=== PATIENT | male | born 1980 | race Caucasian/White ===

== ENCOUNTER 2020-02-07 09:50 | Day surgery (SDC) | payer MEDICAID ==
[2020-01-31 16:00] LABS: BASOPHILS # (AUTO) 0.1 X10'3 (0-0.2); BASOPHILS % (AUTO) 0.6 % (0-1); EOSINOPHILS # (AUTO) 1.2 X10'3 (0-0.9); EOSINOPHILS % (AUTO) 13.1 % (0-6); LYMPHOCYTES # (AUTO) 4.4 X10'3 (1.1-4.8); LYMPHOCYTES % (AUTO) 48.7 % (21-51); MEAN CORPUSCULAR HGB CONC 34.8 g/dL (33.0-36.5); MEAN CORPUSCULAR VOLUME 89.1 FL (78-98); MEAN PLATELET VOLUME 7.4 FL (7.4-10.4); MONOCYTES # (AUTO) 0.6 X10'3 (0-0.9); MONOCYTES % (AUTO) 6.4 % (2-12); NEUTROPHILS # (AUTO) 2.8 X10'3 (1.8-7.7); NEUTROPHILS % (AUTO) 31.2 % (42-75); PRE OP HEMATOCRIT 43.6 % (42.0-52.0); PRE OP HEMOGLOBIN 15.2 g/dL (14.0-17.9); PRE OP PLATELET COUNT 265 X10'3 (140-440); RED CELL DISTRIBUTION WIDTH 12.4 % (11.5-14.5)
[2020-01-31 16:14] LABS: ALBUMIN 3.9 G/DL (3.4-5.0); ALBUMIN/GLOBULIN RATIO 1.2 (1.1-1.5); ALKALINE PHOSPHATASE 71 IU/L (46-116); BLOOD UREA NITROGEN 17 MG/DL (7-18); BUN/CREATININE RATIO 18.7 (5.4-32.0); CALCIUM 8.7 MG/DL (8.5-10.1); CHLORIDE 101 MMOL/L (99-107); CREATININE 0.91 MG/DL (0.60-1.10); PRE OP ALT 41 U/L (30-65); PRE OP ANION GAP 9 (8-16); PRE OP AST 33 U/L (10-37); PRE OP BILIRUB, TOTAL 0.4 MG/DL (0.0-1.0); PRE OP GLUCOSE 98 MG/DL (70-104); PRE OP SODIUM 139 MMOL/L (135-145); TOTAL CARBON DIOXIDE 29.5 MMOL/L (24-32); TOTAL PROTEIN 7.1 G/DL (6.4-8.2); eGFR > 90 ML/MIN
[~2020-02-07] VITALS: Ht 180.3 cm; Wt 122.0 kg
[~2020-02-07 09:50] MED LIST: ASPI-1265 PO; BUPIVAcaine/PF 2.5mg/ml (0.25%) 10ml vial ONE; BUPR1FIL3 PO; GABA300C PO; IBUP-1985 PO; LIDOcaine 0.5% (5mg/ml) 50ml vial ONE; MORP15TA PO; SIMV-42 PO; ceFAZolin inj. 3,000 MG in normal saline 100ml IV soln 100 ML IV ONE; famotidine 20mg tablet PO ONE; ringers solution, lacted 1,000 ML IV SCH
[2020-02-07 09:55] VITALS: BP 119/78
[2020-02-07] MEDS ORDERED: morphine 2 MG/ML inj. syringe IV PRN (10:15)
[2020-02-07] MEDS ORDERED: fentaNYL/PF 50MCG/1 ML 2ML syringe IV PRN ×2 (10:15)
[2020-02-07] MEDS ORDERED: ringers solution, lacted 1,000 ML IV SCH (10:15)
[2020-02-07] MEDS ORDERED: morphine 4 MG/ML inj SYRINge IV PRN (10:15)
[2020-02-07] MEDS ORDERED: hydrALAZINE 20mg/ml inj. IV PRN (10:15)
[2020-02-07] MEDS ORDERED: labetalol 20mg/4ml (5mg/ml) syringe IV PRN (10:15)
[2020-02-07] MEDS ORDERED: ondansetron/PF 4mg/2ml inj IV PRN (10:15)
[2020-02-07] MEDS ORDERED: BUPIVAcaine/PF 2.5mg/ml (0.25%) 10ml vial ONE (11:03)
[2020-02-07] MEDS ORDERED: sevoflurane 250ml liquid IH ONE (12:12)
[2020-02-07] MEDS ORDERED: fentaNYL/PF 50MCG/1 ML 2ML syringe ONE (12:18)
[2020-02-07] MEDS ORDERED: midazolam 2 mg/2 ml injection ONE (12:19)
[2020-02-07] MEDS ORDERED: LIDOcaine 2% (20mg/ml) 5ml vial ONE (12:53)
[2020-02-07] MEDS ORDERED: dexamethasone sod phosphate 4mg/ml inj. ONE (12:53)
[2020-02-07] MEDS ORDERED: ROPIVAcaine 0.5% (5mg/ml) 30ml vial ONE ×2 (12:53)
[2020-02-07] MEDS ORDERED: propofol inj 20 ML IV ONE (12:53)
[2020-02-07] MEDS ORDERED: ondansetron/PF 4mg/2ml inj ONE (12:53)
[2020-02-07 13:58] VITALS: BP 114/61
--- NOTE | 2020-02-07 13:58 | NUR ---
Received from OR via [facility], accompanied by Anesthesiologist Juan Daniel and report given by Anesthesiolgist. Pt sleepy not yet responsive to questions. All VS stable, will assess motor movement when awake. 22G left hand IVF LR. Ice and elevation to right wrist.
[2020-02-07 14:10] VITALS: BP 103/62
--- NOTE | 2020-02-07 14:10 | NUR ---
Pt awake and tolerated RA moves all extrems but not able to move fingers from block on surgical site.
[2020-02-07 14:20] VITALS: BP 110/70
[2020-02-07 14:30] VITALS: BP 123/80
--- NOTE | 2020-02-07 14:58 | NUR ---
Pt discharged by wheelchair to vehicle after IV dc'd and all belongings returned to patient. He states he has zero pain still and numb hand. Dressing remains CDI. He and girlfriend received all DC instructions at vehicle and verbalized understanding. Pt has meds at home and knows to follow up.
== END 2020-02-07 14:58 | disposition home or self-care (01) ==
LOC: PAS 09:50
PROVIDERS: ATTEND Orthopaedic Surgery Hand Surgery
DX: M19.031 Primary osteoarthritis, right wrist (principal); G89.18 Other acute postprocedural pain; F17.210 Nicotine dependence, cigarettes, uncomplicated; F11.20 Opioid dependence, uncomplicated; F15.90 Other stimulant use, unspecified, uncomplicated; E66.9 Obesity, unspecified; Z68.37 Body mass index [BMI] 37.0-37.9, adult; Z79.899 Other long term (current) drug therapy; Z20.828 Contact with and (suspected) exposure to other viral communicable diseases; Z82.49 Family history of ischemic heart disease and other diseases of the circulatory system
CPT/HCPCS: 25800; 36415; 64415; 64417; 76942; 80053; 82948; 85025; 87635; C1713; J0690; J1100; J2001; J2250; J2405; J2704; J3010; J3490; A4215; A4618; J2795; J7120

== ENCOUNTER 2020-02-08 14:28 | Emergency (ER) | payer MEDICAID ==
[~2020-02-08] VITALS: Ht 180.3 cm; Wt 118.2 kg
[~2020-02-08 14:28] MED LIST changes: -BUPIVAcaine/PF 2.5mg/ml (0.25%) 10ml vial ONE; -LIDOcaine 0.5% (5mg/ml) 50ml vial ONE; -ceFAZolin inj. 3,000 MG in normal saline 100ml IV soln 100 ML IV ONE; -famotidine 20mg tablet PO ONE; -ringers solution, lacted 1,000 ML IV SCH
[2020-02-08 14:37] VITALS: BP 156/78
[2020-02-08 15:13] LABS: BASOPHILS # (AUTO) 0.1 X10'3 (0-0.2); BASOPHILS % (AUTO) 0.4 % (0-1); EOSINOPHILS # (AUTO) 0.2 X10'3 (0-0.9); EOSINOPHILS % (AUTO) 1.8 % (0-6); HEMATOCRIT 43.6 % (42.0-52.0); LYMPHOCYTES # (AUTO) 5.6 X10'3 (1.1-4.8); LYMPHOCYTES % (AUTO) 42.9 % (21-51); MEAN CORPUSCULAR HEMOGLOBIN 30.7 PG (27.0-31.0); MEAN CORPUSCULAR HGB CONC 34.5 g/dL (33.0-36.5); MEAN PLATELET VOLUME 7.1 FL (7.4-10.4); MONOCYTES # (AUTO) 1.1 X10'3 (0-0.9); NEUTROPHILS # (AUTO) 6.2 X10'3 (1.8-7.7); NEUTROPHILS % (AUTO) 46.9 % (42-75); PLATELET COUNT 328 X10'3 (140-440); RED CELL DISTRIBUTION WIDTH 12.6 % (11.5-14.5); WHITE BLOOD COUNT 13.1 X10'3 (4.5-11.0)
[2020-02-08 15:22] LABS: ANION GAP 9 (8-16); BLOOD UREA NITROGEN 18 MG/DL (7-18); BUN/CREATININE RATIO 18.8 (5.4-32.0); CALCIUM 8.5 MG/DL (8.5-10.1); CHLORIDE 103 MMOL/L (99-107); CREATININE 0.96 MG/DL (0.60-1.10); GLUCOSE 101 MG/DL (70-104); POTASSIUM 4.1 MMOL/L (3.5-5.1); SODIUM 139 MMOL/L (135-145); TOTAL CARBON DIOXIDE 26.9 MMOL/L (24-32); eGFR 88 ML/MIN
== END 2020-02-08 17:32 | disposition home or self-care (01) ==
LOC: ER 14:29
DX: T81.89XA Other complications of procedures, not elsewhere classified, initial encounter (principal); G89.18 Other acute postprocedural pain; M25.531 Pain in right wrist; Z79.899 Other long term (current) drug therapy; X58.XXXA Exposure to other specified factors, initial encounter; Y92.89 Other specified places as the place of occurrence of the external cause; Y93.89 Activity, other specified; Y99.8 Other external cause status
CPT/HCPCS: 29125; 36415; 73110; 80048; 85025; 99284

== ENCOUNTER 2020-02-22 10:57 | Emergency (ER) | payer MEDICAID ==
[~2020-02-22] VITALS: Ht 180.3 cm; Wt 118.2 kg
--- NOTE | 2020-02-22 11:45 | NUR ---
pt extremely diaphoretic and c/o abdo pain 10/06. last suboxone today. denies heroin, meth or etoh use.
[2020-02-22 12:01] LABS: BASOPHILS # (AUTO) 0.1 X10'3 (0-0.2); BASOPHILS % (AUTO) 0.6 % (0-1); EOSINOPHILS # (AUTO) 1.1 X10'3 (0-0.9); EOSINOPHILS % (AUTO) 10.4 % (0-6); HEMATOCRIT 46.6 % (42.0-52.0); HEMOGLOBIN 16.2 g/dl (14.0-17.9); LYMPHOCYTES % (AUTO) 36.8 % (21-51); MEAN CORPUSCULAR HEMOGLOBIN 30.8 PG (27.0-31.0); MEAN CORPUSCULAR HGB CONC 34.7 g/dL (33.0-36.5); MEAN CORPUSCULAR VOLUME 88.6 FL (78-98); MEAN PLATELET VOLUME 7.2 FL (7.4-10.4); MONOCYTES # (AUTO) 0.6 X10'3 (0-0.9); NEUTROPHILS % (AUTO) 46.2 % (42-75); PLATELET COUNT 296 X10'3 (140-440); RED BLOOD COUNT 5.26 X10'6 (4.70-6.10); RED CELL DISTRIBUTION WIDTH 13.2 % (11.5-14.5); WHITE BLOOD COUNT 10.8 X10'3 (4.5-11.0)
[2020-02-22] MEDS ORDERED: NA P230E PR (12:07)
[2020-02-22] MEDS ORDERED: MAGN296S68 PO (12:07)
[2020-02-22 12:18] LABS: ALANINE AMINOTRANSFERASE 48 U/L (12-78); ALBUMIN 3.8 G/DL (3.4-5.0); ALBUMIN/GLOBULIN RATIO 1.1 (1.1-1.5); ALKALINE PHOSPHATASE 80 IU/L (46-116); ANION GAP 10 (8-16); ASPARTATE AMINO TRANSFERASE 36 U/L (10-37); BILIRUBIN,TOTAL 0.5 MG/DL (0.1-1.0); BLOOD UREA NITROGEN 14 MG/DL (7-18); BUN/CREATININE RATIO 14.7 (5.4-32.0); CALCIUM 8.8 MG/DL (8.5-10.1); CHLORIDE 106 MMOL/L (99-107); CREATININE 0.95 MG/DL (0.60-1.10); GLUCOSE 113 MG/DL (70-104); LIPASE 277 U/L (73-393); SODIUM 139 MMOL/L (135-145); TOTAL CARBON DIOXIDE 23.3 MMOL/L (24-32); TOTAL PROTEIN 7.4 G/DL (6.4-8.2); eGFR 89 ML/MIN
[2020-02-22 12:38] VITALS: BP 116/81
== END 2020-02-22 12:30 | disposition home or self-care (01) ==
LOC: ER 10:58
DX: K56.41 Fecal impaction (principal); R10.84 Generalized abdominal pain; R42 Dizziness and giddiness; Z98.890 Other specified postprocedural states; Z79.82 Long term (current) use of aspirin; Z79.899 Other long term (current) drug therapy
CPT/HCPCS: 36415; 80053; 83690; 85025; 99284

== ENCOUNTER 2020-03-09 13:50 | Emergency (ER) | payer MEDICAID ==
[~2020-03-09] VITALS: Ht 180.3 cm; Wt 113.4 kg
[~2020-03-09 13:50] MED LIST changes: +MAGN296S68 PO; +NA P230E PR
[2020-03-09 14:04] VITALS: BP 135/83
[2020-03-09] MEDS ORDERED: BUPR1FIL3 SL (14:51)
== END 2020-03-09 15:17 | disposition home or self-care (01) ==
LOC: ER 13:51
DX: F15.10 Other stimulant abuse, uncomplicated (principal); F17.200 Nicotine dependence, unspecified, uncomplicated; F11.90 Opioid use, unspecified, uncomplicated; G56.00 Carpal tunnel syndrome, unspecified upper limb; Z98.890 Other specified postprocedural states; Z79.82 Long term (current) use of aspirin; Z79.899 Other long term (current) drug therapy
CPT/HCPCS: 99283

== ENCOUNTER 2020-03-13 09:53 | Emergency (ER) | payer MEDICAID ==
[~2020-03-13] VITALS: Ht 180.3 cm; Wt 112.2 kg
[~2020-03-13 09:53] MED LIST changes: +BUPR1FIL3 SL
[2020-03-13 10:00] VITALS: BP 128/82
--- NOTE | 2020-03-13 10:20 | NUR ---
PT LAST USED THIS MORNING AT 7AM HEROIN AND METH. PT REQUESTING TO GO TO [facility].
--- NOTE | 2020-03-13 10:22 | NUR ---
PT REQUESTING TO HAVE HIS CAST REMOVED FROM RIGHT ARM. PLACED BY [facility]
== END 2020-03-13 10:55 | disposition home or self-care (01) ==
LOC: ER 09:54
DX: F15.10 Other stimulant abuse, uncomplicated (principal); F19.10 Other psychoactive substance abuse, uncomplicated; Z98.890 Other specified postprocedural states; Z79.82 Long term (current) use of aspirin; Z79.899 Other long term (current) drug therapy
CPT/HCPCS: 99281

== ENCOUNTER 2023-03-12 20:18 | Inpatient (IN) | payer MEDICAID ==
[~2023-03-12] VITALS: Ht 180.3 cm; Wt 88.0 kg
[~2023-03-12 20:18] MED LIST changes: -BUPR1FIL3 SL; +piperacillin/tazo 4.5gm/100ml 100 ML IV ONE
[2023-03-12] MEDS ORDERED: normal saline 1000ML IV soln IVB ONE ×2 (20:45→21:50)
[2023-03-12] MEDS ORDERED: morphine 4 MG/ML inj SYRINge IV PRN (20:45)
[2023-03-12] MEDS ORDERED: ondansetron/PF 4mg/2ml inj IV ONE (20:45)
[2023-03-12 21:20] LABS: BASOPHILS # (AUTO) 0.1 X10'3 (0-0.2); BASOPHILS % (AUTO) 0.5 % (0-1); EOSINOPHILS % (AUTO) 0.2 % (0-6); HEMATOCRIT 37.7 % (42.0-52.0); HEMOGLOBIN 12.2 g/dl (14.0-17.9); LYMPHOCYTES # (AUTO) 2.3 X10'3 (1.1-4.8); LYMPHOCYTES % (AUTO) 15.5 % (21-51); MEAN CORPUSCULAR HEMOGLOBIN 27.6 PG (27.0-31.0); MEAN CORPUSCULAR HGB CONC 32.5 g/dL (33.0-36.5); MEAN PLATELET VOLUME 6.5 FL (7.4-10.4); MONOCYTES # (AUTO) 1.6 X10'3 (0-0.9); MONOCYTES % (AUTO) 10.7 % (2-12); NEUTROPHILS # (AUTO) 11.1 X10'3 (1.8-7.7); NEUTROPHILS % (AUTO) 73.1 % (42-75); PLATELET COUNT 550 X10'3 (140-440); RED BLOOD COUNT 4.44 X10'6 (4.70-6.10); RED CELL DISTRIBUTION WIDTH 13.5 % (11.5-14.5); WHITE BLOOD COUNT 15.1 X10'3 (4.5-11.0)
[2023-03-12] MEDS ORDERED: amox tr/potassium clavulanate 875/125mg TAB PO ONE (21:35)
[2023-03-12 21:37] LABS: ALANINE AMINOTRANSFERASE 14 U/L (12-78); ALBUMIN 2.5 G/DL (3.4-5.0); ALBUMIN/GLOBULIN RATIO 0.5 (1.1-1.5); ALKALINE PHOSPHATASE 80 IU/L (46-116); ANION GAP 7 (8-16); ASPARTATE AMINO TRANSFERASE 19 U/L (10-37); BILIRUBIN,TOTAL 0.6 MG/DL (0.1-1.0); BLOOD UREA NITROGEN 18 MG/DL (7-18); BUN/CREATININE RATIO 15.3 (10.0-20.0); CALCIUM 8.8 MG/DL (8.5-10.1); CHLORIDE 96 MMOL/L (99-107); CREATININE 1.18 MG/DL (0.60-1.10); GLUCOSE 96 MG/DL (70-104); POTASSIUM 4.2 MMOL/L (3.5-5.1); SODIUM 133 MMOL/L (135-145); TOTAL CARBON DIOXIDE 30.5 MMOL/L (24-32); TOTAL PROTEIN 7.4 G/DL (6.4-8.2); eCRCL 89 ML/MIN; eGFR 68 ML/MIN
[2023-03-12 21:40] LABS: LIPASE 8 U/L (16-77)
[2023-03-12] MEDS ORDERED: vancomycin/NS 1 GM ADD-VANTAGE 250 ML IV ONE ×2 (21:50→22:10)
[2023-03-12] MEDS ORDERED: methylPREDNISolone sod succ 125mg/2ml vial IV ONE (21:50)
[2023-03-12] MEDS ORDERED: albuterol 2.5 MG/3 ML nebule NEB ONE (21:50)
[2023-03-12 22:53] VITALS: PULSE 107; RESP 20; O2SAT 97
[2023-03-12] MEDS ORDERED: diphenhydrAMINE 25mg capsule PO PRN (22:55)
[2023-03-12] MEDS ORDERED: HYDROcodone/acetaminophen 5mg/325mg tablet PO PRN (22:55)
[2023-03-12] MEDS ORDERED: ondansetron 4mg rapidly disintigrating tab PO PRN (22:55)
[2023-03-12] MEDS ORDERED: morphine 2 MG/ML inj. syringe IV PRN ×2 (22:55)
[2023-03-12] MEDS ORDERED: mag hydrox/Alum hydrox/simeth 30ml oral suspension PO PRN (22:55)
[2023-03-12] MEDS: normal saline 1000ml 1,000 ML IV SCH (22:55)
[2023-03-12] MEDS ORDERED: metoclopramide 5 mg/ml inj IV PRN (22:55)
[2023-03-12] MEDS ORDERED: acetaminophen 325mg tablet PO PRN ×2 (22:55)
[2023-03-12] MEDS ORDERED: ondansetron/PF 4mg/2ml inj IV PRN (22:55)
[2023-03-12] MEDS ORDERED: acetaminophen 650mg rectal suppository RC PRN (22:55)
[2023-03-12] MEDS ORDERED: bisacodyl 10mg suppository rectal RC PRN (22:55)
[2023-03-12] MEDS ORDERED: magnesium hydroxide 30ml (MOM) UD suspension PO PRN (22:55)
[2023-03-12] MEDS ORDERED: diphenhydrAMINE 50 mg/ml inj IV PRN (22:55)
[2023-03-12 23:03] VITALS: PULSE 110; RESP 20; O2SAT 99
[2023-03-12] MEDS ORDERED: magnesium citrate 296ml oral solution PO ONE (23:05)
[2023-03-12] MEDS ORDERED: lactulose 20gm/30ml cup PO ONE (23:05)
[2023-03-12 23:49] LABS: HEMOGLOBIN A1C 5.3 % (4.5-6.2)
[2023-03-12 23:54] LABS: APTT 38 SECONDS (22-32); D-DIMER 0.76 MG/L FEU (0-0.50); INR 1.2 INR; PROTHROMBIN TIME 12.6 SECONDS (9.0-12.0)
[2023-03-12 23:56] LABS: URINE AMPHETAMINE SCREEN POSITIVE (Neg); URINE BARBITUATE SCREEN NEGATIVE (Neg); URINE BENZODIAZEPINES SCREEN NEGATIVE (Neg); URINE CANNABINOID SCREEN POSITIVE (Neg); URINE COCAINE SCREEN NEGATIVE (Neg); URINE METHADONE SCREEN NEGATIVE (Neg); URINE OPIATE SCREEN POSITIVE (Neg); URINE PHENCYCLIDINE SCREEN NEGATIVE (Neg)
[2023-03-13 00:07] LABS: CREATINE KINASE 122 U/L (39-308); MAGNESIUM 1.6 MG/DL (1.5-2.4); PHOSPHORUS 3.6 MG/DL (2.3-4.5); PRO BRAIN NATRIURETIC PEPTIDE 54 PG/ML (0-125); THYROID STIMULATING HORMONE 1.28 ulU/ml (0.34-4.50)
[2023-03-13 00:22] LABS: BILIRUBIN,URINE MODERATE (Neg); CLARITY,URINE SLIGHTLY CLOUDY (Clear); COLOR,URINE AMBER (Yellow); GLUCOSE, URINE 100 mg/dl (Neg); KETONES,URINE TRACE mg/dl (Neg); LEUKOCYTE ESTERASE ,URINE NEGATIVE (Neg); NITRITES, URINE NEGATIVE (Neg); OCCULT BLOOD,URINE NEGATIVE (Neg); PROTEIN,URINE TRACE mg/dl (Neg)
[2023-03-13 00:27] LABS: UA COLLECTION TYPE CLN CATCH MIDSTREAM
[2023-03-13 00:31] LABS: MUCUS STRANDS MANY /LPF (Neg)
[2023-03-13 00:32] LABS: BACTERIA,URINE FEW /HPF (Neg)
[2023-03-13 00:33] LABS: SQUAMOUS EPITHELIAL CELL,UR FEW /LPF (FEW)
[2023-03-13 00:34] LABS: CAL OXALATE CRYSTALS FEW /HPF (NEGATIVE); RBC,URINE NONE SEEN /HPF (0-2); WBC,URINE 0-4 /HPF (0-4)
[2023-03-13] MEDS: heparin, porcine 5000 units/ml vial SQ SCH ×3 (01:03→15:40)
[2023-03-13 02:37] LABS: BASOPHILS % (AUTO) 0.2 % (0-1); EOSINOPHILS % (AUTO) 0.1 % (0-6); HEMATOCRIT 34.8 % (42.0-52.0); HEMOGLOBIN 11.8 g/dl (14.0-17.9); LYMPHOCYTES # (AUTO) 0.9 X10'3 (1.1-4.8); LYMPHOCYTES % (AUTO) 8.4 % (21-51); MEAN CORPUSCULAR HEMOGLOBIN 28.6 PG (27.0-31.0); MEAN CORPUSCULAR HGB CONC 33.8 g/dL (33.0-36.5); MEAN CORPUSCULAR VOLUME 84.5 FL (78-98); MEAN PLATELET VOLUME 6.3 FL (7.4-10.4); MONOCYTES # (AUTO) 0.3 X10'3 (0-0.9); MONOCYTES % (AUTO) 3.1 % (2-12); NEUTROPHILS # (AUTO) 9.8 X10'3 (1.8-7.7); NEUTROPHILS % (AUTO) 88.2 % (42-75); PLATELET COUNT 475 X10'3 (140-440); RED BLOOD COUNT 4.12 X10'6 (4.70-6.10); RED CELL DISTRIBUTION WIDTH 13.9 % (11.5-14.5); WHITE BLOOD COUNT 11.1 X10'3 (4.5-11.0)
[2023-03-13 02:41] LABS: ALANINE AMINOTRANSFERASE 17 U/L (12-78); ALBUMIN 2.4 G/DL (3.4-5.0); ALBUMIN/GLOBULIN RATIO 0.5 (1.1-1.5); ALKALINE PHOSPHATASE 77 IU/L (46-116); ANION GAP 7 (8-16); ASPARTATE AMINO TRANSFERASE 14 U/L (10-37); BILIRUBIN,TOTAL 0.9 MG/DL (0.1-1.0); BLOOD UREA NITROGEN 12 MG/DL (7-18); BUN/CREATININE RATIO 13.5 (10.0-20.0); CALCIUM 8.6 MG/DL (8.5-10.1); CHLORIDE 99 MMOL/L (99-107); CREATININE 0.89 MG/DL (0.60-1.10); GLUCOSE 134 MG/DL (70-104); POTASSIUM 4.4 MMOL/L (3.5-5.1); SODIUM 133 MMOL/L (135-145); TOTAL CARBON DIOXIDE 26.7 MMOL/L (24-32); TOTAL PROTEIN 7.1 G/DL (6.4-8.2); eCRCL 118 ML/MIN; eGFR > 90 ML/MIN
[2023-03-13 02:44] LABS: CHOL/HDL RATIO 6.4 (0.00-4.99); CHOLESTEROL 197 MG/DL (0-200); HDL CHOLESTEROL 31 MG/DL (35-60); LDL CHOLESTEROL 139 MG/DL (50-100); TRIGLYCERIDES 59 MG/DL (20-135)
[2023-03-13 03:49] VITALS: BP 115/67; PULSE 88; RESP 20; TEMP 98.6; O2SAT 93
[2023-03-13 06:00] VITALS: BP 115/68; PULSE 87; RESP 18; TEMP 98.6; O2SAT 93
[2023-03-13] MEDS: CefTRIAXone/D5W-Rocephin 1gm 50 ML IV SCH (07:01)
[2023-03-13] MEDS: nicotine 21mg patch - 24 hr TD SCH ×2 (07:01→12:15)
[2023-03-13] MEDS: docusate sod 100mg capsule PO SCH ×2 (07:03→20:00)
[2023-03-13] MEDS: azithromycin/NS 500mg/250ml 250 ML IV SCH (08:19)
[2023-03-13] MEDS: normal saline 1000ml 1,000 ML IV SCH ×3 (08:25→22:46)
[2023-03-13] MEDS: HYDROcodone/acetaminophen 10/325mg tab PO PRN ×4 (08:32→20:40)
[2023-03-13 10:00] VITALS: BP 115/77; PULSE 87; RESP 16; TEMP 96.2; O2SAT 95
[2023-03-13] MEDS ORDERED: iohexol 300mg/ml 100ml inj. ONE (15:18)
[2023-03-13 17:52] VITALS: PULSE 68; RESP 17; O2SAT 95
[2023-03-13 19:00] VITALS: BP 134/82; PULSE 79; RESP 16; TEMP 97.8; O2SAT 95
[2023-03-13] MEDS: temazepam 15mg capsule PO PRN (20:44)
[2023-03-13] MEDS ORDERED: polyethylene glycol 3350 17gm powd pack PO SCH (21:00)
[2023-03-13 22:00] VITALS: BP 115/58; PULSE 80; RESP 18; TEMP 97.3; O2SAT 94
[2023-03-13] MEDS: guaiFENesin ER 600mg tablet PO SCH (22:46)
[2023-03-14] VITALS (7 sets, daily range): BP systolic 117–148; BP diastolic 60–81; PULSE 73–88; RESP 14–19; TEMP 97.7–98.5; O2SAT 93–98
[2023-03-14] MEDS: HYDROcodone/acetaminophen 10/325mg tab PO PRN ×5 (01:46→23:34)
[2023-03-14 06:29] LABS: BASOPHILS % (AUTO) 0.3 % (0-1); EOSINOPHILS % (AUTO) 0.2 % (0-6); HEMATOCRIT 35.4 % (42.0-52.0); HEMOGLOBIN 11.9 g/dl (14.0-17.9); LYMPHOCYTES # (AUTO) 2.3 X10'3 (1.1-4.8); LYMPHOCYTES % (AUTO) 27.9 % (21-51); MEAN CORPUSCULAR HEMOGLOBIN 28.4 PG (27.0-31.0); MEAN CORPUSCULAR HGB CONC 33.6 g/dL (33.0-36.5); MEAN CORPUSCULAR VOLUME 84.6 FL (78-98); MEAN PLATELET VOLUME 6.6 FL (7.4-10.4); MONOCYTES # (AUTO) 0.6 X10'3 (0-0.9); MONOCYTES % (AUTO) 7.9 % (2-12); NEUTROPHILS # (AUTO) 5.2 X10'3 (1.8-7.7); NEUTROPHILS % (AUTO) 63.7 % (42-75); PLATELET COUNT 487 X10'3 (140-440); RED BLOOD COUNT 4.19 X10'6 (4.70-6.10); RED CELL DISTRIBUTION WIDTH 13.9 % (11.5-14.5); WHITE BLOOD COUNT 8.2 X10'3 (4.5-11.0)
[2023-03-14 06:44] LABS: ALANINE AMINOTRANSFERASE 12 U/L (12-78); ALBUMIN 2.1 G/DL (3.4-5.0); ALBUMIN/GLOBULIN RATIO 0.5 (1.1-1.5); ALKALINE PHOSPHATASE 67 IU/L (46-116); ANION GAP 6 (8-16); ASPARTATE AMINO TRANSFERASE 16 U/L (10-37); BILIRUBIN,TOTAL 0.4 MG/DL (0.1-1.0); BLOOD UREA NITROGEN 11 MG/DL (7-18); BUN/CREATININE RATIO 15.9 (10.0-20.0); CALCIUM 8.6 MG/DL (8.5-10.1); CHLORIDE 104 MMOL/L (99-107); CREATININE 0.69 MG/DL (0.60-1.10); GLUCOSE 96 MG/DL (70-104); POTASSIUM 3.9 MMOL/L (3.5-5.1); SODIUM 138 MMOL/L (135-145); TOTAL CARBON DIOXIDE 28.4 MMOL/L (24-32); TOTAL PROTEIN 6.7 G/DL (6.4-8.2); eCRCL 152 ML/MIN; eGFR > 90 ML/MIN
[2023-03-14] MEDS: CefTRIAXone/D5W-Rocephin 1gm 50 ML IV SCH (07:56)
[2023-03-14] MEDS: nicotine 21mg patch - 24 hr TD SCH (08:00)
[2023-03-14] MEDS: docusate sod 100mg capsule PO SCH (08:33)
[2023-03-14] MEDS: guaiFENesin ER 600mg tablet PO SCH ×2 (08:33→20:00)
[2023-03-14] MEDS: heparin, porcine 5000 units/ml vial SQ SCH ×4 (08:34→23:35)
[2023-03-14] MEDS ORDERED: LORazepam 1 MG tablet PO ONE (09:00)
[2023-03-14] MEDS: azithromycin/NS 500mg/250ml 250 ML IV SCH (09:14)
[2023-03-14] MEDS: normal saline 1000ml 1,000 ML IV SCH (12:48)
[2023-03-14] MEDS ORDERED: HYDROcodone/acetaminophen 5mg/325mg tablet PO PRN (16:50)
[2023-03-14] MEDS ORDERED: polyethylene glycol 3350 17gm powd pack PO PRN (16:50)
[2023-03-14] MEDS ORDERED: LORazepam 2 mg/ml vial IV PRN (16:50)
[2023-03-14] MEDS: LORazepam 0.5 MG tablet PO PRN (18:22)
[2023-03-14] MEDS ORDERED: LORazepam 1 MG tablet PO PRN (19:20)
[2023-03-15] MEDS: LORazepam 0.5 MG tablet PO PRN ×4 (01:07→22:36)
[2023-03-15 01:28] LABS: BASOPHILS % (AUTO) 0.3 % (0-1); EOSINOPHILS % (AUTO) 0.2 % (0-6); HEMATOCRIT 37.2 % (42.0-52.0); HEMOGLOBIN 12.6 g/dl (14.0-17.9); LYMPHOCYTES # (AUTO) 2.1 X10'3 (1.1-4.8); LYMPHOCYTES % (AUTO) 20.8 % (21-51); MEAN CORPUSCULAR HEMOGLOBIN 28.5 PG (27.0-31.0); MEAN CORPUSCULAR HGB CONC 33.8 g/dL (33.0-36.5); MEAN CORPUSCULAR VOLUME 84.1 FL (78-98); MEAN PLATELET VOLUME 6.6 FL (7.4-10.4); MONOCYTES # (AUTO) 0.7 X10'3 (0-0.9); MONOCYTES % (AUTO) 6.8 % (2-12); NEUTROPHILS # (AUTO) 7.2 X10'3 (1.8-7.7); NEUTROPHILS % (AUTO) 71.9 % (42-75); PLATELET COUNT 548 X10'3 (140-440); RED BLOOD COUNT 4.42 X10'6 (4.70-6.10); RED CELL DISTRIBUTION WIDTH 13.4 % (11.5-14.5)
[2023-03-15 01:43] LABS: ALANINE AMINOTRANSFERASE 16 U/L (12-78); ALBUMIN 2.2 G/DL (3.4-5.0); ALBUMIN/GLOBULIN RATIO 0.5 (1.1-1.5); ALKALINE PHOSPHATASE 70 IU/L (46-116); ANION GAP 10 (8-16); ASPARTATE AMINO TRANSFERASE 14 U/L (10-37); BILIRUBIN,TOTAL 0.4 MG/DL (0.1-1.0); BLOOD UREA NITROGEN 9 MG/DL (7-18); BUN/CREATININE RATIO 12.7 (10.0-20.0); CALCIUM 8.6 MG/DL (8.5-10.1); CHLORIDE 103 MMOL/L (99-107); CREATININE 0.71 MG/DL (0.60-1.10); GLUCOSE 96 MG/DL (70-104); POTASSIUM 3.7 MMOL/L (3.5-5.1); SODIUM 139 MMOL/L (135-145); TOTAL CARBON DIOXIDE 26.4 MMOL/L (24-32); eCRCL 147 ML/MIN; eGFR > 90 ML/MIN
[2023-03-15] MEDS: normal saline 1000ml 1,000 ML IV SCH ×2 (04:21→21:38)
[2023-03-15] MEDS: HYDROcodone/acetaminophen 10/325mg tab PO PRN ×2 (05:34→11:30)
[2023-03-15 06:00] VITALS: BP_SYST 133; BP_SYST 145; BP_DIAS 71; BP_DIAS 85; PULSE 64; PULSE 79; RESP 12; RESP 18; TEMP 98.2; TEMP 98.3; O2SAT 96; O2SAT 97
[2023-03-15] MEDS: heparin, porcine 5000 units/ml vial SQ SCH ×2 (08:00→15:41)
[2023-03-15] MEDS: nicotine 21mg patch - 24 hr TD SCH (08:00)
[2023-03-15] MEDS: CefTRIAXone/D5W-Rocephin 1gm 50 ML IV SCH (08:08)
[2023-03-15] MEDS: guaiFENesin ER 600mg tablet PO SCH ×2 (08:08→21:35)
[2023-03-15] MEDS: azithromycin/NS 500mg/250ml 250 ML IV SCH (08:08)
[2023-03-15 18:00] VITALS: BP 139/76; PULSE 66; RESP 10; TEMP 97.8; O2SAT 95
[2023-03-15] MEDS: temazepam 15mg capsule PO PRN (21:35)
[2023-03-15 22:00] VITALS: BP 134/71; PULSE 77; RESP 14; TEMP 97.9; O2SAT 95
[2023-03-16] MEDS: LORazepam 0.5 MG tablet PO PRN ×2 (04:46→12:19)
[2023-03-16 06:00] VITALS: BP 121/70; PULSE 71; RESP 17; TEMP 97.5; O2SAT 96
[2023-03-16 07:00] VITALS: RESP 16; O2SAT 96
[2023-03-16] MEDS: nicotine 21mg patch - 24 hr TD SCH (08:00)
[2023-03-16] MEDS: heparin, porcine 5000 units/ml vial SQ SCH ×2 (08:00)
[2023-03-16] MEDS ORDERED: azithromycin 250mg tablet PO SCH (08:00)
[2023-03-16] MEDS: CefTRIAXone/D5W-Rocephin 1gm 50 ML IV SCH (08:21)
[2023-03-16] MEDS: guaiFENesin ER 600mg tablet PO SCH (08:40)
[2023-03-16 10:00] VITALS: BP 140/86; PULSE 73; RESP 16; TEMP 97; O2SAT 96
[2023-03-16] MEDS ORDERED: AMOX-580 PO (12:40)
[2023-03-16] MEDS ORDERED: BUPR1FIL3 PO (12:40)
[2023-03-16] MEDS ORDERED: LORA-269 PO ×2 (12:50→14:28)
== END 2023-03-16 16:45 | disposition home or self-care (01) | DRG 720 ==
LOC: ER 20:19 → ED HOLD 23:05 → EDBEDREQ 03-13 03:13 → ORTHO 4S 03-13 03:32
PROVIDERS: ADMIT Family Medicine; ATTEND Internal Medicine
PROC: BW241ZZ Computerized Tomography (CT Scan) of Chest and Abdomen using Low Osmolar Contrast (ICD-10-PCS; principal; 2023-03-13)
DX: A41.9 Sepsis, unspecified organism (principal); J96.01 Acute respiratory failure with hypoxia; I31.39 Other pericardial effusion (noninflammatory); N17.9 Acute kidney failure, unspecified; J18.9 Pneumonia, unspecified organism; E87.1 Hypo-osmolality and hyponatremia; J44.0 Chronic obstructive pulmonary disease with (acute) lower respiratory infection; I48.91 Unspecified atrial fibrillation; Z20.822 Contact with and (suspected) exposure to COVID-19; G89.4 Chronic pain syndrome; D64.9 Anemia, unspecified; J44.1 Chronic obstructive pulmonary disease with (acute) exacerbation; F11.13 Opioid abuse with withdrawal; N18.9 Chronic kidney disease, unspecified; F19.10 Other psychoactive substance abuse, uncomplicated; E78.5 Hyperlipidemia, unspecified; D75.839 Thrombocytosis, unspecified; Z59.00 Homelessness unspecified; Z79.82 Long term (current) use of aspirin; Z79.899 Other long term (current) drug therapy
CPT/HCPCS: 36415; 71045; 71260; 74176; 80053; 80061; 80305; 81001; 81003; 82550; 83036; 83605; 83690; 83735; 83880; 84100; 84145; 84443; 84484; 85025; 85379; 85610; 85651; 85730; 87040; 87081; 87502; 87503; 87811; 93005; 94640; 94664; 94760; 99285; A4615; A6258; G0378; J0456; J0696; J1644; J2270; J2405; J2543; J2930; J3370; J3490; J7030; Q9967

== ENCOUNTER 2023-03-23 14:09 | Emergency (ER) | payer MEDICAID ==
[~2023-03-23] VITALS: Ht 180.3 cm; Wt 89.3 kg
[~2023-03-23 14:09] MED LIST changes: -BUPR1FIL3 PO; -IBUP-1985 PO; +LORA-269 PO; -MORP15TA PO; -piperacillin/tazo 4.5gm/100ml 100 ML IV ONE
[2023-03-23 14:23] VITALS: BP 115/66; PULSE 98; RESP 18; TEMP 98.1; O2SAT 99
== END 2023-03-23 14:45 | disposition home or self-care (01) ==
LOC: ER 14:10
DX: F11.10 Opioid abuse, uncomplicated (principal); F15.10 Other stimulant abuse, uncomplicated; F14.10 Cocaine abuse, uncomplicated; Z79.899 Other long term (current) drug therapy
CPT/HCPCS: 99281

== ENCOUNTER 2023-09-14 01:11 | Emergency (ER) | payer MEDICAID ==
[~2023-09-14] VITALS: Ht 180.3 cm; Wt 79.5 kg
[2023-09-14] MEDS: HYDROcodone/acetaminophen 5mg/325mg tablet PO ONE (03:18)
[2023-09-14] MEDS: ondansetron 4mg rapidly disintigrating tab PO ONE (03:18)
[2023-09-14] MEDS: acetaminophen 325mg tablet PO ONE (03:18)
[2023-09-14] MEDS: ibuprofen tablet 400 MG TABLET PO ONE (03:18)
[2023-09-14] MEDS ORDERED: TRAM50TA2 PO (03:51)
[2023-09-14] MEDS ORDERED: LIDO700A32 TOP (03:51)
[2023-09-14] MEDS ORDERED: ACET-1025 PO (03:51)
[2023-09-14] MEDS ORDERED: IBUP-1984 PO (03:51)
[2023-09-14] MEDS: LIDOcaine 5% patch TP ONE (03:57)
[2023-09-14 04:00] VITALS: BP 110/70; PULSE 111; RESP 16; TEMP 98.6; O2SAT 99
== END 2023-09-14 04:02 | disposition home or self-care (01) ==
LOC: ER 01:11
DX: R07.81 Pleurodynia (principal); I48.91 Unspecified atrial fibrillation; F15.90 Other stimulant use, unspecified, uncomplicated; F11.90 Opioid use, unspecified, uncomplicated; Z98.890 Other specified postprocedural states; Z79.82 Long term (current) use of aspirin; Z79.899 Other long term (current) drug therapy
CPT/HCPCS: 71045; 93005; 99284